=== PATIENT | male | born 1965 | race Caucasian/White ===

== ENCOUNTER 2017-03-02 02:34 | Emergency (ER) | payer OTHER ==
[~2017-03-02] VITALS: Ht 175.3 cm; Wt 81.6 kg
[~2017-03-02 02:34] MED LIST: LEVO500T20 PO
[2017-03-02 02:45] VITALS: BP_SYST 145
[2017-03-02] MEDS ORDERED: LORazepam 2 MG/ML VIAL (FOR ER USE) IVP ONE (02:45)
[2017-03-02] MEDS ORDERED: NITROGLYCERIN 1 INCH (GM) OINT. TD ONE (02:45)
[2017-03-02] MEDS ORDERED: PROCHLORPERAZINE EDISYLATE 10 MG/2 ML VIAL IVP ONE (02:45)
[2017-03-02 03:03] LABS: BASOPHILS # (AUTO) 0.1 K/uL (0.0-0.2); BASOPHILS % (AUTO) 0.7 % (0.0-2.0); EOSINOPHILS # (AUTO) 0.4 K/uL (0.0-0.4); EOSINOPHILS % (AUTO) 3.4 % (0.0-4.0); HEMATOCRIT 40.2 % (36-54); HEMOGLOBIN 13.5 g/dL (14.0-18.0); LYMPHOCYTES # (AUTO) 1.7 K/uL (1.0-5.5); LYMPHOCYTES % (AUTO) 16.4 % (20.5-51.5); MEAN CORPUSCULAR HEMOGLOBIN 30 pg (27-31); MEAN CORPUSCULAR HGB CONC 34 % (32-36); MEAN CORPUSCULAR VOLUME 88 fL (79.0-98.0); MONOCYTES # (AUTO) 0.7 K/uL (0.0-1.0); MONOCYTES % (AUTO) 7.1 % (1.7-9.3); NEUTROPHILS # (AUTO) 7.4 K/uL (1.8-7.7); NEUTROPHILS % (AUTO) 72.4 % (40.0-70.0); PLATELET COUNT (AUTO) 300 K/uL (130-430); RED BLOOD CELL COUNT(AUTO) 4.59 MIL/uL (4.2-6.2); WHITE BLOOD COUNT (AUTO) 10.3 K/uL (4.8-10.8)
[2017-03-02 03:12] LABS: CALCIUM 8.7 mg/dL (8.4-11.0); CREATININE 1.07 mg/dL (0.55-1.30); POTASSIUM 3.6 mmol/L (3.5-5.1)
[2017-03-02 03:18] LABS: ALBUMIN 3.5 g/dL (3.4-4.8); TOTAL BILIRUBIN 0.4 mg/dL (0.0-1.0); TOTAL PROTEIN, SERUM 6.8 g/dL (6.4-8.3)
[2017-03-02] MEDS ORDERED: NACL 0.9% 1,000 ML IV ONE (04:30)
[2017-03-02 05:50] VITALS: BP_SYST 112
== END 2017-03-02 05:50 | disposition short-term general hospital (02) ==
LOC: SED 02:34
DX: R07.89 Other chest pain (principal); J44.9 Chronic obstructive pulmonary disease, unspecified; Z88.6 Allergy status to analgesic agent
CPT/HCPCS: 36415; 71010; 80053; 84484; 85025; 93005; 96361; 96374; 96375; 99285; J0780; J2060; J7030

== ENCOUNTER 2017-03-18 17:31 | Emergency (ER) | payer OTHER ==
[~2017-03-18] VITALS: Ht 175.3 cm; Wt 79.4 kg
[2017-03-18 17:31] VITALS: BP_SYST 128
== END 2017-03-18 17:48 | disposition left against medical advice (07) ==
LOC: SED 17:31
DX: R07.89 Other chest pain (principal); Z53.21 Procedure and treatment not carried out due to patient leaving prior to being seen by health care provider
CPT/HCPCS: 93005; 99281

== ENCOUNTER 2017-03-28 20:37 | Emergency (ER) | payer OTHER ==
[~2017-03-28] VITALS: Ht 175.3 cm; Wt 79.4 kg
[2017-03-28 20:40] VITALS: BP_SYST 162
[2017-03-28] MEDS ORDERED: MORPHINE 4 MG/ML INJ. SYRINGE IVP ONE (21:00)
[2017-03-28] MEDS ORDERED: ASPIRIN 325 MG TABLET PO ONE (21:00)
[2017-03-28 21:30] VITALS: BP_SYST 148
[2017-03-28 21:30] LABS: BASOPHILS # (AUTO) 0.1 K/uL (0.0-0.2); BASOPHILS % (AUTO) 1.1 % (0.0-2.0); EOSINOPHILS # (AUTO) 0.5 K/uL (0.0-0.4); EOSINOPHILS % (AUTO) 6.2 % (0.0-4.0); HEMATOCRIT 41.1 % (36-54); HEMOGLOBIN 13.6 g/dL (14.0-18.0); LYMPHOCYTES # (AUTO) 1.4 K/uL (1.0-5.5); LYMPHOCYTES % (AUTO) 19.2 % (20.5-51.5); MEAN CORPUSCULAR HEMOGLOBIN 29 pg (27-31); MEAN CORPUSCULAR HGB CONC 33 % (32-36); MEAN CORPUSCULAR VOLUME 87 fL (79.0-98.0); MONOCYTES # (AUTO) 0.8 K/uL (0.0-1.0); MONOCYTES % (AUTO) 10.2 % (1.7-9.3); NEUTROPHILS # (AUTO) 4.7 K/uL (1.8-7.7); NEUTROPHILS % (AUTO) 63.3 % (40.0-70.0); PLATELET COUNT (AUTO) 267 K/uL (130-430); RED CELL DISTRIBUTION WIDTH 12.6 % (9.0-15.0); WHITE BLOOD COUNT (AUTO) 7.5 K/uL (4.8-10.8)
[2017-03-28 21:46] LABS: CALCIUM 9.1 mg/dL (8.4-11.0); CREATININE 1.06 mg/dL (0.55-1.30); POTASSIUM 3.7 mmol/L (3.5-5.1)
[2017-03-28 21:50] LABS: INR 0.9 (0.80-1.20); PROTHROMBIN TIME 9.8 SECS (9.5-12.5)
[2017-03-28 21:51] LABS: ALBUMIN 3.7 g/dL (3.4-4.8); TOTAL BILIRUBIN 0.7 mg/dL (0.0-1.0); TOTAL PROTEIN, SERUM 7.5 g/dL (6.4-8.3)
[2017-03-28 21:57] LABS: BILIRUBIN,URINE NEGATIVE (NEGATIVE); BLOOD, URINE NEGATIVE (NEGATIVE); CLARITY/URINE CLEAR (CLEAR); COLOR,URINE YELLOW (YELLOW); GLUCOSE,URINE NEGATIVE (NEGATIVE); KETONES,URINE NEGATIVE (NEGATIVE); LEUKOCYTE ESTERASE ,URINE TRACE (NEGATIVE); NITRITE, URINE NEGATIVE (NEGATIVE); PH,URINE 6.5 (5.0-8.0); PROTEIN URINE NEGATIVE (NEGATIVE); UROBILINOGEN,URINE 0.2 (0.2-1.0)
[2017-03-28 22:11] LABS: CKMB RELATIVE INDEX 1.1 (0.0-2.9); CREATINE KINASE MB 3.7 ng/mL (0-3.6)
[2017-03-28 22:13] LABS: BARBITURATE, URINE NEGATIVE (NEG <=200); BENZODIAZEPINE, URINE NEGATIVE (NEG <=150); CANNABINOID, URINE NEGATIVE (NEG <=50); COCAINE, URINE NEGATIVE (NEG <=150); METHAMPHETAMINES SCREEN,URINE NEGATIVE (NEG <=500); OPIATE, URINE NEGATIVE (NEG <=100); PHENCYCLIDINE SCREEN,URINE NEGATIVE (NEG <=25); UR TRICYCLIC ANTIDEPRESSANTS NEGATIVE (NEG <=300); URINE AMPHETAMINE POSITIVE (NEG <=500); URINE METHADONE NEGATIVE (NEG <=200); URINE OXYCODONE SCREEN NEGATIVE (NEG <=100); URINE PROPOXYPHENE SCREEN NEGATIVE (NEG <=300)
[2017-03-28 22:51] LABS: BACTERIA,URINE MANY /HPF (None Seen); WBC,URINE 0-3 /HPF (0-3)
== END 2017-03-28 21:46 | disposition left against medical advice (07) ==
LOC: SED 20:37
DX: R07.89 Other chest pain (principal); F19.10 Other psychoactive substance abuse, uncomplicated; Z88.6 Allergy status to analgesic agent; Z79.899 Other long term (current) drug therapy
CPT/HCPCS: 36415; 51702; 80053; 80061; 80307; 81000; 82550; 82553; 83880; 84484; 85025; 85610; 85730; 87086; 93005; 96374; 99285; J2270